=== PATIENT | female | born 2000 | race Two or more races ===

== ENCOUNTER 2023-11-16 00:44 | Inpatient (IN) | payer OTHER ==
[~2023-11-16] VITALS: Ht 152.4 cm; Wt 71.7 kg
[2023-11-16] VITALS (9 sets, daily range): BP systolic 95–135; BP diastolic 45–90
[2023-11-16] MEDS ORDERED: CEFAZOLIN SODIUM 1,000 MG VIAL IV ONE (00:45)
[2023-11-16] MEDS ORDERED: PRENATAL TABLE1 EAC1 PO (00:46)
[2023-11-16] MEDS ORDERED: RINGERS SOLUTION,LACTATED 1,000 ML IV SCH (01:00)
[2023-11-16 01:08] LABS: HEMATOCRIT 29.7 % (36.0-45.00); HEMOGLOBIN 10.3 g/dL (12.0-15.00); MEAN CELL VOLUME 86.9 fL (80.00-100.00); MEAN CORPUSCULAR HEMOGLOBIN 30.2 pg (27.00-32.0); MEAN CORPUSCULAR HGB CONC 34.7 g/dl (32.0-36.0); PLATELET COUNT 259 K/uL (150-450); RED BLOOD COUNT 3.42 M/uL (4.00-6.00); RED CELL DISTRIBUTION WIDTH 13.6 % (11.5-14.5)
[2023-11-16 01:10] LABS: URINE APPEARANCE Cloudy; URINE BILIRRUBIN Negative (NEGATIVE); URINE BLOOD Trace; URINE COLOR Yellow; URINE GLUCOSE Negative (NEGATIVE); URINE KETONE Negative (NEGATIVE); URINE LEUKOCYTE Moderate; URINE NITRATE Negative; URINE PROTEIN Trace (NEGATIVE); URINE UROBILINOGEN 0.2 E.U./dl
[2023-11-16 01:11] LABS: URINE BACTERIA 2020.9 uL (0.0-1933); URINE CAST 0.61 uL (0.0-1.40); URINE EPITHELIAL CELLS 29.8 uL (0.0-38.8); URINE RBC 41.5 uL (0.0-20.8); URINE WBC 129.2 uL (0.0-23.2)
[2023-11-16] MEDS ORDERED: BETAMETHASONE ACETATE,SOD PHOS 30 MG/5 ML ML IM STA (03:47)
[2023-11-16] MEDS ORDERED: ACETAMINOPHEN 500 MG GEL..CAP PO ONE ×2 (04:00→04:15)
[2023-11-16] MEDS ORDERED: MAGNESIUM SULFATE IN WATER 100 ML IV SCH (04:00)
[2023-11-16] MEDS ORDERED: BETAMETHASONE ACETATE,SOD PHOS 30 MG/5 ML ML IM ONE (04:00)
[2023-11-16] MEDS ORDERED: AMPICILLIN SODIUM 2,000 MG VIAL IV ONE (04:00)
[2023-11-16] MEDS ORDERED: MAGNESIUM SULFATE IN WATER 500 ML IV SCH (04:00)
[2023-11-16] MEDS ORDERED: ONDANSETRON HCL 2 MG/ML VIAL IV ONE (04:00)
[2023-11-16] MEDS ORDERED: TERBUTALINE SULFATE 1 MG/ML AMPUL SUBCUTANEO SCH (04:00)
[2023-11-16 04:24] LABS: INR 0.99; PARTIAL THROMBOPLASTIN TIME 32.4 SECONDS (22.0-34.0); PROTHROMBIN TIME 10.8 SECONDS (9.0-11.5)
[2023-11-16 04:31] LABS: ALBUMIN 2.9 gm/dL (3.4-5.0); BILIRUBIN TOTAL 0.26 mg/dL (0.3-1.2); CALCIUM 8.7 mg/dL (8.5-10.1); CREATININE SERUM 0.86 mg/dL (0.55-1.02); GFR 84.12; GLOBULINA 3.5 G/DL (2.4-3.5); POTASSIUM 3.86 mEq/L (3.5-5.1); TOTAL PROTEIN 6.4 gm/dL (6.4-8.2)
[2023-11-16] MEDS ORDERED: AMPICILLIN SODIUM 1,000 MG VIAL IV SCH (09:00)
[2023-11-16] MEDS ORDERED: ACETAMINOPHEN 500 MG GEL..CAP PO PRN (11:45)
[2023-11-16] MEDS ORDERED: TERBUTALINE SULFATE 1 MG/ML AMPUL SUBCUTANEO ONE (11:45)
[2023-11-17 03:53] VITALS: BP 99/46
[2023-11-17] MEDS ORDERED: BETAMETHASONE ACETATE,SOD PHOS 30 MG/5 ML ML IM SCH (04:05)
[2023-11-17 07:27] VITALS: BP 98/51
[2023-11-17] MEDS ORDERED: NIFEDIPINE 30 MG TAB.SA.OSM PO SCH (09:00)
[2023-11-17] MEDS ORDERED: SOD FERRIC GLUC COMPLX/SUCROSE 125 MG in 0.9 % SODIUM CHLORIDE 100 ML IV SCH (11:00)
[2023-11-17 12:17] VITALS: BP 106/55
[2023-11-17 15:18] VITALS: BP 105/59
[2023-11-17 20:33] VITALS: BP 115/63
[2023-11-17 23:22] VITALS: BP 95/64
[2023-11-18 03:00] VITALS: BP 107/55
[2023-11-18 08:07] VITALS: BP 103/52
[2023-11-18] MEDS ORDERED: SOD FERRIC GLUC COMPLX/SUCROSE 125 MG in 0.9 % SODIUM CHLORIDE 100 ML IV SCH (09:00)
[2023-11-18 12:04] VITALS: BP 103/58; O2SAT 99
[2023-11-18 15:24] VITALS: BP 111/63
[2023-11-18 19:09] VITALS: BP 102/61
[2023-11-18] MEDS ORDERED: CEFAZOLIN SODIUM 1,000 MG VIAL IV SCH (20:00)
[2023-11-18 23:40] VITALS: BP 106/69
[2023-11-19 03:34] VITALS: BP 103/57
[2023-11-19 07:55] VITALS: BP 108/65; O2SAT 99
[2023-11-19 13:22] VITALS: BP 114/65
[2023-11-19 16:13] VITALS: BP 90/60
[2023-11-19] MEDS ORDERED: SOD FERRIC GLUC COMPLX/SUCROSE 125 MG in 0.9 % SODIUM CHLORIDE 100 ML IV SCH (17:00)
[2023-11-19] MEDS ORDERED: PROGESTERONE VAG SCH (21:00)
[2023-11-20 00:36] VITALS: BP 98/64
[2023-11-20 05:24] VITALS: BP 106/71
[2023-11-20 08:14] VITALS: BP 103/62
[2023-11-20 16:00] VITALS: BP 99/66
[2023-11-21 00:21] VITALS: BP 100/65
[2023-11-21 09:05] VITALS: BP 105/66
[2023-11-21 17:12] VITALS: BP 100/64
[2023-11-22 01:00] VITALS: BP 104/66
[2023-11-22 08:00] VITALS: BP 97/64
[2023-11-22 12:00] VITALS: BP 93/61
[2023-11-22 17:10] VITALS: BP 94/62
[2023-11-22 20:33] VITALS: BP 97/63
[2023-11-23] VITALS: BP 95/57
[2023-11-23 07:45] VITALS: BP 90/60
[2023-11-23 14:31] VITALS: BP 102/68
[2023-11-23 16:00] VITALS: BP 100/66
[2023-11-24] VITALS: BP 94/61
[2023-11-24 08:00] VITALS: BP 91/64
[2023-11-24 12:00] VITALS: BP 91/57
[2023-11-24 16:00] VITALS: BP 94/60
[2023-11-25 00:31] VITALS: BP 95/56
[2023-11-25 08:00] VITALS: BP 90/62
[2023-11-25] MEDS ORDERED: IRON FUM,PS/FOLIC ACID/VITC/B3 1 CAP CAPSULE PO SCH (12:00)
[2023-11-25 12:52] VITALS: BP 110/69
[2023-11-25 15:47] LABS: PH,URINE 7.5 (5.0-8.0); URINE APPEARANCE Clear; URINE BILIRRUBIN Negative (NEGATIVE); URINE BLOOD Negative; URINE COLOR Yellow; URINE GLUCOSE Negative (NEGATIVE); URINE KETONE Negative (NEGATIVE); URINE LEUKOCYTE Negative; URINE NITRATE Negative; URINE PROTEIN Negative (NEGATIVE); URINE UROBILINOGEN 0.2 E.U./dl
[2023-11-25 15:51] LABS: URINE BACTERIA 6.2 uL (0.0-1933); URINE RBC 8.7 uL (0.0-20.8)
[2023-11-25 15:55] LABS: URINE WBC 1.3 uL (0.0-23.2)
[2023-11-25 17:33] VITALS: BP 100/60
[2023-11-25 21:25] VITALS: BP 100/82
[2023-11-26] VITALS: BP 103/64
[2023-11-26 05:13] VITALS: BP 90/56
[2023-11-26 08:00] VITALS: BP 98/60; BP 98/6091
[2023-11-26 16:00] VITALS: BP 95/60
[2023-11-27 01:49] VITALS: BP 98/55
[2023-11-27 05:43] VITALS: BP 99/56
[2023-11-27 08:07] VITALS: BP 100/65
[2023-11-27 16:35] VITALS: BP 100/59
[2023-11-27 20:13] VITALS: BP 99/68
[2023-11-28 02:28] VITALS: BP 90/55
[2023-11-28 08:28] VITALS: BP 75/45; BP 96/64
[2023-11-28 11:04] LABS: HEMATOCRIT 30.1 % (36.0-45.00); MEAN CELL VOLUME 88.3 fL (80.00-100.00); MEAN CORPUSCULAR HEMOGLOBIN 29.5 pg (27.00-32.0); MEAN CORPUSCULAR HGB CONC 33.4 g/dl (32.0-36.0); PLATELET COUNT 188 K/uL (150-450); RED BLOOD COUNT 3.41 M/uL (4.00-6.00); RED CELL DISTRIBUTION WIDTH 13.7 % (11.5-14.5)
[2023-11-28 16:13] VITALS: BP 91/60
[2023-11-29 00:14] VITALS: BP 93/60
[2023-11-29 08:31] VITALS: BP 100/62
[2023-11-29 13:56] VITALS: BP 96/61
[2023-11-29 16:00] VITALS: BP 99/60
[2023-11-30] VITALS: BP 92/60
[2023-11-30 08:55] VITALS: BP 98/60
[2023-11-30] MEDS ORDERED: BETAMETHASONE ACETATE,SOD PHOS 30 MG/5 ML ML IM SCH (12:00)
[2023-11-30 15:51] VITALS: BP 92/62
[2023-12-01 02:15] VITALS: BP 96/62
[2023-12-01 09:17] VITALS: BP 90/55
[2023-12-01 15:28] VITALS: BP 100/62
[2023-12-02 01:00] VITALS: BP 95/60
[2023-12-02 10:03] VITALS: BP 101/67
[2023-12-02 16:00] VITALS: BP 92/59
[2023-12-03] VITALS: BP 96/60
[2023-12-03 08:00] VITALS: BP 97/64
[2023-12-03] MEDS ORDERED: SOD FERRIC GLUC COMPLX/SUCROSE 125 MG in 0.9 % SODIUM CHLORIDE 100 ML IV SCH (17:00)
[2023-12-03 17:51] VITALS: BP 98/60
[2023-12-03 20:46] VITALS: BP 103/69
[2023-12-04 00:39] VITALS: BP 90/61
[2023-12-04 08:05] VITALS: BP 98/61
[2023-12-04 15:30] VITALS: BP 97/66
[2023-12-05 01:37] VITALS: BP 100/65
[2023-12-05 06:08] VITALS: BP 99/60
[2023-12-05 08:00] VITALS: BP 119/67; BP 89/47
[2023-12-05 16:00] VITALS: BP 90/55
[2023-12-06 01:21] VITALS: BP 110/86
[2023-12-06 05:51] VITALS: BP 100/60
[2023-12-06 08:00] VITALS: BP 91/60
[2023-12-06 16:00] VITALS: BP 101/70
[2023-12-07 01:20] VITALS: BP 100/61
[2023-12-07 06:15] VITALS: BP 98/55
[2023-12-07 07:48] VITALS: BP 95/61
[2023-12-07 15:48] VITALS: BP 95/64
[2023-12-08 00:01] VITALS: BP 96/61
[2023-12-08 08:44] VITALS: BP 90/68
[2023-12-08 15:43] VITALS: BP 111/71
[2023-12-08 23:46] VITALS: BP 100/65
[2023-12-09 05:21] VITALS: BP 95/58
[2023-12-09 07:57] VITALS: BP 98/57
[2023-12-09 20:00] VITALS: BP 100/65
[2023-12-09] MEDS ORDERED: ACETAMINOPHEN 500 MG GEL..CAP PO PRN (22:00)
[2023-12-10] VITALS: BP 94/62
[2023-12-10 09:13] VITALS: BP 100/70
[2023-12-10 16:00] VITALS: BP 93/59
[2023-12-10 20:00] VITALS: BP 98/60
[2023-12-11 01:00] VITALS: BP 89/56
[2023-12-11 08:29] VITALS: BP 90/55
[2023-12-11 16:00] VITALS: BP 90/56
[2023-12-12] VITALS: BP 95/60
[2023-12-12 08:47] VITALS: BP 96/62
[2023-12-12 16:00] VITALS: BP 98/65
[2023-12-13 01:24] VITALS: BP 90/56
[2023-12-13 05:56] VITALS: BP 95/60
[2023-12-13 09:04] VITALS: BP 97/63
[2023-12-13 16:00] VITALS: BP 112/74
[2023-12-13 20:00] VITALS: BP 99/63
[2023-12-14 02:20] VITALS: BP 95/60
[2023-12-14 06:22] VITALS: BP 96/55
[2023-12-14 08:00] VITALS: BP 100/67
[2023-12-14 16:04] VITALS: BP 117/73
[2023-12-14 20:00] VITALS: BP 90/56
[2023-12-15 00:38] VITALS: BP 90/60
[2023-12-15 08:00] VITALS: BP 100/67
[2023-12-15] MEDS ORDERED: PNV,CALCIUM 72/IRON/FOLIC ACID 1 TAB TABLET PO SCH (10:30)
[2023-12-15] MEDS ORDERED: PNV,CALCIUM 72/IRON/FOLIC ACID 1 TAB TABLET PO NR (11:00)
[2023-12-15 13:54] LABS: HEMATOCRIT 32.8 % (36.0-45.00); MEAN CELL VOLUME 90.1 fL (80.00-100.00); MEAN CORPUSCULAR HEMOGLOBIN 30.2 pg (27.00-32.0); MEAN CORPUSCULAR HGB CONC 33.5 g/dl (32.0-36.0); RED BLOOD COUNT 3.65 M/uL (4.00-6.00); RED CELL DISTRIBUTION WIDTH 14.4 % (11.5-14.5)
[2023-12-15 14:30] LABS: PLATELET COUNT 71 K/uL (150-450)
[2023-12-15 15:11] VITALS: BP 97/62
[2023-12-16 00:15] VITALS: BP 96/84
[2023-12-16 08:39] VITALS: BP 105/62
[2023-12-16] MEDS ORDERED: PNV,CALCIUM 72/IRON/FOLIC ACID 1 TAB TABLET PO SCH (09:00)
[2023-12-16 13:21] VITALS: BP 103/58
[2023-12-16 14:44] VITALS: BP 100/55
[2023-12-16 20:14] VITALS: BP 92/62
[2023-12-17] VITALS: BP 96/60
[2023-12-17 07:53] LABS: PLT IN CITRATE 173 K/uL (150-450)
[2023-12-17 08:17] LABS: HEMATOCRIT 31.4 % (36.0-45.00); HEMOGLOBIN 10.8 g/dL (12.0-15.00); MEAN CELL VOLUME 89.8 fL (80.00-100.00); MEAN CORPUSCULAR HEMOGLOBIN 30.8 pg (27.00-32.0); MEAN CORPUSCULAR HGB CONC 34.3 g/dl (32.0-36.0); RED CELL DISTRIBUTION WIDTH 14.1 % (11.5-14.5)
[2023-12-17 08:22] LABS: PLATELET COUNT 97 K/uL (150-450)
[2023-12-17 08:30] VITALS: BP 89/51
[2023-12-17 13:15] VITALS: BP 108/70
[2023-12-17] MEDS ORDERED: Procardia Xl 30MG TA PO (14:08)
== END 2023-12-17 16:18 | disposition home or self-care (01) | DRG 776 ==
LOC: OBS/DEL 00:44 → LDR 03:44 → OB/GYN 11-19 10:03
PROVIDERS: Obstetrics & Gynecology; Obstetrics & Gynecology Maternal & Fetal Medicine; ADMIT Specialist; ATTEND Specialist
PROC: 4A1HXCZ Monitoring of Products of Conception, Cardiac Rate, External Approach (ICD-10-PCS; principal; 2023-11-16)
PROC: BY4FZZZ Ultrasonography of Third Trimester, Single Fetus (ICD-10-PCS; 2023-11-16)
PROC: BY4FZZZ Ultrasonography of Third Trimester, Single Fetus (ICD-10-PCS; 2023-11-19)
PROC: BU4CZZZ Ultrasonography of Uterus and Ovaries (ICD-10-PCS; 2023-11-19)
PROC: BY4FZZZ Ultrasonography of Third Trimester, Single Fetus (ICD-10-PCS; 2023-12-10)
PROC: BY47ZZZ Ultrasonography of Fetal Umbilical Cord (ICD-10-PCS; 2023-12-10)
PROC: BY4FZZZ Ultrasonography of Third Trimester, Single Fetus (ICD-10-PCS; 2023-12-17)
PROC: BY47ZZZ Ultrasonography of Fetal Umbilical Cord (ICD-10-PCS; 2023-12-17)
DX: O99.13 Other diseases of the blood and blood-forming organs and certain disorders involving the immune mechanism complicating the puerperium (principal); O26.873 Cervical shortening, third trimester; D68.9 Coagulation defect, unspecified; O36.8130 Decreased fetal movements, third trimester, not applicable or unspecified; O60.03 Preterm labor without delivery, third trimester; O36.5930 Maternal care for other known or suspected poor fetal growth, third trimester, not applicable or unspecified; O26.843 Uterine size-date discrepancy, third trimester; Z3A.30 30 weeks gestation of pregnancy; Z37.0 Single live birth; Z20.822 Contact with and (suspected) exposure to COVID-19

== ENCOUNTER 2023-12-26 09:43 | Outpatient (CLI) | payer OTHER ==
[~2023-12-26 09:43] MED LIST: PRENATAL TABLE1 EAC1 PO; Procardia Xl 30MG TA PO
== END 2023-12-26 09:44 | disposition home or self-care (01) ==
LOC: PRENATAL 09:43
PROVIDERS: ATTEND Obstetrics & Gynecology Maternal & Fetal Medicine
DX: O36.5990 Maternal care for other known or suspected poor fetal growth, unspecified trimester, not applicable or unspecified (principal); O36.8199 Decreased fetal movements, unspecified trimester, other fetus; Z3A.35 35 weeks gestation of pregnancy

== ENCOUNTER 2023-12-27 00:57 | Inpatient (IN) | payer OTHER ==
[2023-12-26 23:57] VITALS: BP 99/61
[2023-12-26 23:59] VITALS: BP 99/62
[~2023-12-27] VITALS: Ht 154.9 cm; Wt 71.7 kg
[2023-12-27] MEDS ORDERED: AMPICILLIN SODIUM 2,000 MG VIAL IV ONE (01:00)
[2023-12-27] MEDS ORDERED: RINGERS SOLUTION,LACTATED 1,000 ML IV SCH (01:00)
[2023-12-27 01:19] LABS: PH,URINE 7.5 (5.0-8.0); URINE APPEARANCE Clear; URINE BILIRRUBIN Negative (NEGATIVE); URINE BLOOD Negative; URINE COLOR Yellow; URINE GLUCOSE Negative (NEGATIVE); URINE KETONE Negative (NEGATIVE); URINE LEUKOCYTE Negative; URINE NITRATE Negative; URINE PROTEIN Negative (NEGATIVE); URINE UROBILINOGEN 0.2 E.U./dl
[2023-12-27 01:20] LABS: URINE EPITHELIAL CELLS 5.2 uL (0.0-38.8); URINE RBC 14.3 uL (0.0-20.8); URINE WBC 7.7 uL (0.0-23.2)
[2023-12-27 01:21] LABS: MEAN CELL VOLUME 88.7 fL (80.00-100.00); MEAN CORPUSCULAR HEMOGLOBIN 30.5 pg (27.00-32.0); MEAN CORPUSCULAR HGB CONC 34.4 g/dl (32.0-36.0); PLATELET COUNT 138 K/uL (150-450); RED BLOOD COUNT 3.94 M/uL (4.00-6.00); RED CELL DISTRIBUTION WIDTH 14.6 % (11.5-14.5)
[2023-12-27 01:22] LABS: URINE BACTERIA 2.5 uL (0.0-1933)
[2023-12-27 01:44] LABS: INR 0.97; PARTIAL THROMBOPLASTIN TIME 27.9 SECONDS (22.0-34.0); PROTHROMBIN TIME 10.6 SECONDS (9.0-11.5)
[2023-12-27 01:48] LABS: BILIRUBIN TOTAL 0.23 mg/dL (0.3-1.2); CALCIUM 9.4 mg/dL (8.5-10.1); CREATININE SERUM 0.53 mg/dL (0.55-1.02); GFR 145.62; GLOBULINA 3.5 G/DL (2.4-3.5); POTASSIUM 3.76 mEq/L (3.5-5.1); TOTAL PROTEIN 6.5 gm/dL (6.4-8.2)
[2023-12-27 03:08] VITALS: BP 119/67
[2023-12-27] MEDS ORDERED: AMPICILLIN SODIUM 1,000 MG VIAL IV SCH (05:00)
[2023-12-27] MEDS ORDERED: OXYTOCIN 500 ML IV SCH (05:15)
[2023-12-27] MEDS ORDERED: MEPERIDINE HCL/PF 50 MG/ML VIAL IV ONE (07:15)
[2023-12-27 07:19] VITALS: BP 104/61
[2023-12-27] MEDS ORDERED: PROMETHAZINE HCL 25 MG/ML AMPUL IV ONE (07:30)
[2023-12-27] MEDS ORDERED: LIDOCAINE HCL 1% 10ML VIAL IJ ONE (08:57)
[2023-12-27] MEDS ORDERED: OXYTOCIN 1,000 ML IV ONE (08:57)
[2023-12-27] MEDS ORDERED: CHLORHEXIDINE GLUCONATE 120 ML BOTTLE TOP ONE (08:57)
[2023-12-27] MEDS ORDERED: ERYTHROMYCIN BASE OPHT 1GM EACH TUBE OP ONE (08:57)
[2023-12-27] MEDS ORDERED: IBUprofen 600 MG TABLET PO SCH (12:00)
[2023-12-27 15:47] VITALS: BP 124/65
[2023-12-27 17:23] VITALS: BP 101/66
[2023-12-27 20:53] VITALS: BP 95/62
[2023-12-28] VITALS: BP 107/65
[2023-12-28 08:36] VITALS: BP 102/70
[2023-12-28 16:00] VITALS: BP 100/67
[2023-12-28 23:40] VITALS: BP 105/69
[2023-12-29 07:59] VITALS: BP 105/69
== END 2023-12-29 15:06 | disposition home or self-care (01) | DRG 805 ==
LOC: LDR 00:57 → OB/GYN 00:57
PROVIDERS: ADMIT Specialist; ATTEND Specialist
PROC: 10E0XZZ Delivery of Products of Conception, External Approach (ICD-10-PCS; principal; 2023-12-27)
PROC: 0KQM0ZZ Repair Perineum Muscle, Open Approach (ICD-10-PCS; 2023-12-27)
PROC: 4A1HXCZ Monitoring of Products of Conception, Cardiac Rate, External Approach (ICD-10-PCS; 2023-12-27)
DX: O70.1 Second degree perineal laceration during delivery (principal); O60.14X0 Preterm labor third trimester with preterm delivery third trimester, not applicable or unspecified; Z37.0 Single live birth; Z3A.35 35 weeks gestation of pregnancy; Z20.822 Contact with and (suspected) exposure to COVID-19